=== PATIENT | female | born 1995 | race Caucasian/White ===

== ENCOUNTER 2024-12-04 09:24 | Emergency (ER) | payer OTHER ==
[~2024-12-04] VITALS: Ht 157.5 cm; Wt 114.8 kg
[~2024-12-04 09:24] MED LIST: PEPC1TAB5 PO; PRED20TA PO
[2024-12-04] MEDS: ACETAMINOPHEN *IV* 1,000 MG in IV 1 EA IV ONE (10:51)
[2024-12-04] MEDS: NS (Normal Saline) 0.9% 1,000 ML IV ONE (10:51)
[2024-12-04] MEDS: ONDANSETRON 4MG 2ML VIAL IV ONE (10:52)
[2024-12-04 11:04] LABS: BASO # 0.0 10^3/uL (0.0-0.2); BASO % 0.4 % (0.0-1.0); EOS # 0.1 10^3/uL (0.0-0.5); EOS % 0.8 % (0.0-3.0); LYMPH # 1.6 10^3/uL (1.5-5.0); LYMPH % 22.8 % (24.0-44.0); MONO # 0.8 10^3/uL (0.0-0.8); MONO % 11.4 % (2.0-8.0); NEUTROPHILS # 4.6 10^3/uL (1.5-8.5); NEUTROPHILS % 64.3 % (36.0-66.0); PLATELET COUNT, AUTOMATED 289 10^3/uL (150-450)
[2024-12-04 11:07] LABS: ERYTHROCYTE SEDIMENTATION RATE 19 mm/hr (0-20)
[2024-12-04 11:26] LABS: HCG, SERUM QUALITATIVE NEGATIVE (NEGATIVE)
[2024-12-04 11:28] LABS: ALT/SGPT 18 U/L (7.0-40); AST/SGOT 20 U/L (<34); C REACTIVE PROTEIN QUANTITATIV < 0.50 MG/DL (<1.0); CALCIUM LEVEL 9.4 MG/DL (8.5-10.1); CARBON DIOXIDE LEVEL 27 MMOL/L (20-31); CHLORIDE LEVEL 105 MMOL/L (98-107); CREATININE FOR GFR 0.69 MG/DL (0.55-1.30); GLOMERULAR FILTRATION RATE > 90.0 (>60); POTASSIUM SERUM 4.5 MMOL/L (3.5-5.1); SODIUM LEVEL 144 MMOL/L (136-145)
[2024-12-04] MEDS ORDERED: ISOVUE-370 76% 100 ML VIAL As Ordered ONE (11:45)
[2024-12-04 13:00] LABS: KETONE, URINE AUTO RFX NEGATIVE (NEGATIVE); LEUKOCYTE ESTERASE UR AUTO RFX NEGATIVE (NEGATIVE); NITRITE, URINE AUTO RFX NEGATIVE (NEGATIVE); RBC, URINE AUTO RFX 0 /HPF (0-3); SQUAM EPITHELIAL CELL UR AURFX 1 /HPF (0-6); WBC, URINE AUTO RFX 1 /HPF (0-3)
[2024-12-04 14:17] VITALS: BP 118/72; TEMP 97.7; O2SAT 98
== END 2024-12-04 14:33 | disposition home or self-care (01) ==
LOC: M ED 10:23
DX: N83.291 Other ovarian cyst, right side (principal); Z88.6 Allergy status to analgesic agent; Z79.52 Long term (current) use of systemic steroids; Z79.899 Other long term (current) drug therapy
CPT/HCPCS: 74177; 76830; 76856; 80053; 81001; 83605; 83690; 84703; 85025; 85652; 86140; 93976; 96365; 96375; 99284; J0131; J2405; Q9967

== ENCOUNTER → 2024-12-31 | Outpatient (CLI) | payer OTHER | LOC: M LAB 16:51 | PROVIDERS: ATTEND Nurse Practitioner Adult Health | DX: Z32.01 Encounter for pregnancy test, result positive (principal) ==

== ENCOUNTER → 2025-01-17 | Outpatient (CLI) | payer OTHER ==
[2025-01-17 17:20] LABS: PLATELET COUNT, AUTOMATED 383 10^3/uL (150-450)
[2025-01-17 17:39] LABS: INR 0.91
== END ==
LOC: M LAB 15:27
PROVIDERS: ATTEND Internal Medicine Cardiovascular Disease
DX: R55 Syncope and collapse (principal)

== ENCOUNTER → 2025-01-17 | Outpatient (CLI) | payer OTHER ==
[2025-01-17 18:26] LABS: ESTIMATED AVERAGE GLUCOSE 108.0 MG/DL (60-110)
[2025-01-17 18:43] LABS: FREE T4 1.15 NG/DL (0.89-1.76)
== END ==
LOC: M LAB 15:25
PROVIDERS: ATTEND Nurse Practitioner Adult Health
DX: E06.3 Autoimmune thyroiditis (principal); E28.2 Polycystic ovarian syndrome

== ENCOUNTER → 2025-01-20 | Outpatient (REF) | payer OTHER | LOC: M LAB REF 16:47 | PROVIDERS: ATTEND Nurse Practitioner Family | DX: R55 Syncope and collapse (principal) ==